=== PATIENT | female | born 1960 | race Caucasian/White ===

== ENCOUNTER 2022-06-19 14:32 | Emergency (ER) | payer OTHER, BC ==
--- OUTSIDE RECORDS SUMMARY | 2022-06-19 14:35 | XMS REPORT | Continuity of Care Document ---
:1960 Author Organization [facility] t Address [address] [place] [address] Care Team Providers Name Role Phone Shira NGUYEN, Wanda Dunbar Primary Care Physician [phone] Naty Shrestha MD Attending Clinician [phone] Eladia Ba MD Attending Clinician Doctor Unassigned, [place] Attending Clinician Unavailable Lab, Ang - Db Attending Clinician Unavailable Wanda Silva MD Attending Clinician WANDA SILVA Attending Clinician Unavailable Toni Navarro DO Attending Clinician Lukas Kinney Attending Clinician Unavailable Lab, Adc Fam Pob I Attending Clinician Unavailable Lukas Kinney Admitting Clinician Unavailable Payers Payer Name Policy Type Policy Number Effective Date Expiration Date S ource Problems Condition Condition Condition Status Onset Resolution Last Treating Co mments Source Name Details Category Date Date Treatment Clinician Date Anemia Anemia Disease Active Methodi 05-03 st 00:00: Hospita 00 l Tubular Tubular Disease Active Overview: Univ ers adenoma adenoma 8-20 Formattin ity o f 00:00: g of this 00 note Medical might be Branch different from the original. Followed by GI, repeat colonosco py 2022 GUI (iron GUI (iron Disease Active Uni vers deficiency deficiency 8-20 it y of anemia) anemia) 00:00: Medical Branch Elevated Elevated Disease Active Unive rs total total 2-26 ity of protein protein 00:00: Medical Branch Hyperchole Hyperchole Disease Active U nivers sterolemia sterolemia 2-08 it y of 00:00: Medical Branch Type 2 Type 2 Disease Active Univers diabetes diabetes 2-08 ity of mellitus mellitus 00:00: [place] without without 00 Medical complicati complicati Br anch on on Essential Essential Disease Active Uni vers hypertensi hypertensi 2-08 it y of on on 00:00: [place] [facility] Allergies, Adverse Reactions, Alerts Allergy Allergy Status Severity Reaction(s) Onset Inactive Treating Comm ents Source Name Type Date Date Clinician Clotrima Propensi Active Hives Method i zole ty to 04-09 st adverse 00:00: Hospita reaction 00 l s to drug Fluconaz Propensi Active Rash Univer s ole ty to 2-08 ity of adverse 00:00: [place] reaction 00 Medical s Branch Clotrima Propensi Active Rash Univer s zole ty to 2-08 ity of adverse 00:00: [place] reaction 00 Medical s Branch FLUCONAZ DRUG Active Med Rash Univers OLE INGREDI 2-08 ity of 00:00: [place] 00 Medical Branch CLOTRIMA DRUG Active Med Rash Univers ZOLE INGREDI 2-08 ity of 00:00: [place] 00 Medical Branch Family History Family Member Diagnosis Comments Start Date Stop Date Source Natural father Heart disease [facility] Maternal aunt Diabetes [facility] Maternal grandmother Stroke [facility] Natural mother Heart disease [facility] Natural mother Hy[facility] Social History Social Habit Start Date Stop Date Quantity Comments Source History [facility] University o f Alcohol Frequency [place] [facility] History [facility] University o f Alcohol Std [place] [facility] Drinks Branch History [facility] o f Alcohol Binge [place] [facility] al Branch Exposure to Not sure University of SARS-CoV-2 [place] [facility] (event) Branch Tobacco use and 2022-04-09 2022-04-09 Smokeless tobacco [facility] exposure 00:00:00 00:00:00 non-user Hospital Alcohol intake 2022-04-09 2022-04-09 Ex-drinker [facility] 00:00:00 00:00:00 (finding) Hospital Alcohol Comment 2015-09-15 2015-09-15 occ Universit y of 00:00:00 00:00:00 [facility] Sex Assigned At [birth year] [facility] 00:[facility]:00 Hospital Smoking Status Start Date Stop Date Source Never smoked tobacco [facility] Medications Ordered Filled Start Stop Current Ordering Indication Dosage Frequency Signature Comments Components Source Medication Medication Date Date Medication? Clinician (SIG) Name Name aspirin 81 Yes 81mg QD Take 81 mg M ethodi mg capsule 05-[address] 14:53: daily. Hospita 55 l clopidogreL Yes Method i (PLAVIX) 75 9- st mg tablet 14:53: Hospita 55 l ferrous Yes Methodi sulfate 325 05-03 st (65 FE) MG 14:53: Hospita tablet 55 l insulin Yes Methodi GLARGINE 05-03 st (LANTUS 14:53: Hospita SOLOSTAR) 55 l 100 unit/mL injection (pen) metFORMIN Yes Methodi (GLUCOPHAGE 05-03 st ) 500 mg 14:53: Hospita tablet 55 l triamcinolo Yes Apply Metho di ne 04-[address] (KENALOG) 08:42: Hospita 0.1 % cream 18 l amLODIPine Yes 2.5mg QD Take 1 Meth jerardo (NORVASC) 8-[address] 2.5 mg 00:00: (2.5 mg Hospita tablet 00 total) by l mouth daily. pioglitazon Yes 30mg QD Take 1 Meth jerardo e (ACTOS) 8-25 tablet (30 st 30 MG 00:00: mg total) Hospita tablet 00 by mouth l daily. losartan Yes 100mg QD Take 1 Method i (COZAAR) 8-[address] 100 MG 00:00: (100 mg Hospita tablet 00 total) by l mouth daily. hydrOXYzine Yes 25mg QD Take 1 Meth jerardo (ATARAX) 25 8-25 tablet (25 st MG tablet 00:00: mg total) Hos hallie 00 by mouth l daily. Trulicity Yes INJECT 1.5 Me thodi 1.5 mg/0.5 8-[address] mL 00:00: THE SKIN Hospita subcutaneou 00 WEEKLY. l s pen atorvastati Yes 40mg QD Take 1 Meth jerardo n (LIPITOR) 7-07 tablet (40 st 40 mg 00:00: mg total) Hospita tablet 00 by mouth l daily. fluticasone 2021- No Metho di propionate 6- 09-26 st (FLONASE) 00:00: 00:00 Hospita 50 00 :00 l mcg/actuati on nasal spray hydrOXYzine 2020-08- No 25mg Take 25 mg Univers 25 mg 1-24 11-24 by mouth ity of tablet 10:28: 00:00 every 8 [place] 37 :00 (eight) Medical hours as Branch needed for Itching. hydrOXYzine 2020-08 No 25mg Take 25 mg Univers 25 mg 1-24 11-24 by mouth ity of tablet 10:28: 00:00 every 8 [place] 37 :00 (eight) Medical hours as Branch needed for Itching. pioglitazon 2020-08 Yes [id number] 30mg Take 1 Univers e 30 mg 1-24 tablet by ity of tablet 00:00: mouth [place] 00 daily. Medical Branch metformin 2020-08 Yes [id number] 1000mg Take 2 Univers ER 500 mg 1-24 tablets by ity of 24 hr 00:00: mouth 2 [place] tablet 00 (two) Medical times Branch daily. losartan 2020-08 Yes [id number] 100mg Take 1 Un rafiq 100 mg 1-24 tablet by ity of tablet 00:00: mouth [place] 00 every Medical morning. Branch hydrOXYzine 2020-08 Yes [id number] 25mg Take 1 Univers 25 mg 1-24 tablet by ity of tablet 00:00: mouth [place] 00 every 8 Medical (eight) Branch hours as needed for Itching. ferrous 2020-08 Yes [id number] 325mg Take 1 Uni vers sulfate 325 1-24 tablet by ity of mg (65 mg 00:00: mouth [place] iron) EC 00 daily with Medic al tablet breakfast. Branch dulaglutide 2020-08 Yes [id number] 1.5mg inject 1.5 Univers (TRULICITY) 1-24 mg under ity of 1.5 mg/0.5 00:00: the skin Pasquale as mL PnIj 00 weekly. Medical Branch atorvastati 2020-08 Yes [id number] 10mg Take 1 Univers n 10 mg 1-24 tablet by ity of tablet 00:00: mouth [place] 00 every Medical morning. Branch amLODIPine 2020-08 Yes [id number] 2.5mg Take 1 Univers 2.5 mg 1-24 tablet by ity of tablet 00:00: mouth [place] 00 daily. Medical Branch pioglitazon 2020-08 Yes [id number] 30mg Take 1 Univers e 30 mg 1-24 tablet by ity of tablet 00:00: mouth [place] 00 daily. Medical Branch metformin 2020-08 Yes [id number] 1000mg Take 2 Univers ER 500 mg 1-24 tablets by ity of 24 hr 00:00: mouth 2 [place] tablet 00 (two) Medical times Branch daily. losartan 2020-08 Yes [id number] 100mg Take 1 Un rafiq 100 mg 1-24 tablet by ity of tablet 00:00: mouth [place] 00 every Medical morning. Branch hydrOXYzine 2020-08 Yes [id number] 25mg Take 1 Univers 25 mg 1-24 tablet by ity of tablet 00:00: mouth [place] 00 every 8 Medical (eight) Branch hours as needed for Itching. ferrous 2020-08 Yes [id number] 325mg Take 1 Uni vers sulfate 325 1-24 tablet by ity of mg (65 mg 00:00: mouth [place] iron) EC 00 daily with Medic al tablet breakfast. Branch dulaglutide 2020-08 Yes [id number] 1.5mg inject 1.5 Univers (TRULICITY) 1-24 mg under ity of 1.5 mg/0.5 00:00: the skin [place] as mL PnIj 00 weekly. Medical Branch atorvastati 2020-08 Yes [id number] 10mg Take 1 Univers n 10 mg 1-24 tablet by ity of tablet 00:00: mouth [place] 00 every Medical morning. Branch amLODIPine 2020-08 Yes [id number] 2.5mg Take 1 Univers 2.5 mg 1-24 tablet by ity of tablet 00:00: mouth [place] 00 daily. Medical Branch pioglitazon 2020-08 Yes [id number] 30mg Take 1 Univers e 30 mg 1-24 tablet by ity of tablet 00:00: mouth [place] 00 daily. Medical Branch metformin 2020-08 Yes [id number] 1000mg Take 2 Univers ER 500 mg 1-24 tablets by ity of 24 hr 00:00: mouth 2 [place] tablet 00 (two) Medical times Branch daily. losartan 2020-08 Yes [id number] 100mg Take 1 Un rafiq 100 mg 1-24 tablet by ity of tablet 00:00: mouth [place] 00 every Medical morning. Branch hydrOXYzine 2020-08 Yes [id number] 25mg Take 1 Univers 25 mg 1-24 tablet by ity of tablet 00:00: mouth [place] 00 every 8 Medical (eight) Branch hours as needed for Itching. ferrous 2020-08 Yes [id number] 325mg Take 1 Uni vers sulfate 325 1-24 tablet by ity of mg (65 mg 00:00: mouth [place] iron) EC 00 daily with Medic al tablet breakfast. Branch dulaglutide 2020-08 Yes [id number] 1.5mg inject 1.5 Univers (TRULICITY) 1-24 mg under ity of 1.5 mg/0.5 00:00: the skin [place] as mL PnIj 00 weekly. Medical Branch atorvastati 2020-08 Yes [id number] 10mg Take 1 Univers n 10 mg 1-24 tablet by ity of tablet 00:00: mouth [place] 00 every Medical morning. Branch amLODIPine 2020-08 Yes [id number] 2.5mg Take 1 Univers 2.5 mg 1-24 tablet by ity of tablet 00:00: mouth [place] 00 daily. Medical Branch ketoconazol 2019-08 Yes [id number] Apply to Univers e 2 % cream -23 area(s) ity o f 08:15: daily. [place] 13 Medical Branch ketoconazol 2019-08 Yes [id number] Apply to Univers e 2 % cream -23 area(s) ity o f 08:15: daily. [address] ketoconazol 2019-08 Yes [id number] Apply to Univers e 2 % cream 08-30 area(s) ity o f 08:15: daily. [address] metformin 2019-08- No [id number] 1000mg Take 2 Univers ER 500 mg 08-30-24 tablets by ity of 24 hr 00:00: 00:00 mouth 2 [place] tablet 00 :00 (two) Medical times [place] daily. pioglitazon 2019-08- No [id number] 30mg Take 1 Univers e 30 mg 08-3024 tablet by ity of tablet 00:00: 00:00 mouth [place] 00 :00 daily. Medical Branch dulaglutide 2019-08- No [id number] 1.5mg inject 1.5 Univers (TRULICITY) 08-3024 mg under ity of 1.5 mg/0.5 00:00: 00:00 [place] mL PnIj 00 :00 weekly. Medical Branch amLODIPine 2019-08- No [id number] 2.5mg Take 1 Univers 2.5 mg 08-30 tablet by ity of tablet 00:00: 00:00 mouth [place] 00 :00 daily. Medical Branch atorvastati 2019-08- No [id number] 10mg Take 1 Univers n 10 mg 08-30 tablet by ity of tablet 00:00: 00:00 mouth [place] 00 :00 every Medical morning. Branch losartan 2019-08- No [id number] 100mg Take 1 U nivers 100 mg 08-30 tablet by ity of tablet 00:00: 00:00 mouth [place] 00 :00 every Medical morning. Branch metformin 2019-08- No [id number] 1000mg Take 2 Univers ER 500 mg 08-30-24 tablets by ity of 24 hr 00:00: 00:00 mouth 2 [place] tablet 00 :00 (two) Medical times [place] daily. pioglitazon 2019-08- No [id number] 30mg Take 1 Univers e 30 mg 08-3024 tablet by ity of tablet 00:00: 00:00 mouth [place] 00 :00 daily. Medical Branch dulaglutide 2019-08- No [id number] 1.5mg inject 1.5 Univers (TRULICITY) 08-30 mg under ity of 1.5 mg/0.5 00:00: 00:00 [place] mL PnIj 00 :00 weekly. Medical Branch amLODIPine 2019-08- No [id number] 2.5mg Take 1 Univers 2.5 mg 08-30 tablet by ity of tablet 00:00: 00:00 mouth [place] 00 :00 daily. Medical Branch atorvastati 2019-08- No [id number] 10mg Take 1 Univers n 10 mg 08-30 tablet by ity of tablet 00:00: 00:00 mouth [place] 00 :00 every Medical morning. Branch losartan 2019-08- No [id number] 100mg Take 1 U nivers 100 mg 08-30 tablet by ity of tablet 00:00: 00:00 mouth [place] 00 :00 every Medical morning. Branch [facility] 2018-08 Yes [id number] Apply to [place] [address] area(s). ity of t comb45 08:01: [place] 0.1 % Crea 43 [facility] 2018-08 Yes [id number] Apply to [place] [address] area(s). ity of t comb45 08:01: [place] 0.1 % Crea 43 [facility] 2018-08 Yes [id number] Apply to [place] [address] area(s). ity of t comb45 08:01: [place] 0.1 % Crea 43 Medical Branch ferrous 2018-08- No [id number] 325mg Take 1 Un rafiq sulfate 325 09-03 tablet by it y of mg (65 mg 00:00: 00:00 mouth [place] iron) EC 00 :00 daily with Medic al tablet breakfast. Branch ferrous 2018-08- No [id number] 325mg Take 1 Un rafiq sulfate 325 09-03 tablet by it y of mg (65 mg 00:00: 00:00 mouth [place] iron) EC 00 :00 daily with Medic al tablet breakfast. Branch Immunizations Ordered Filled Immunization Date Status Comments [facility] e Immunization Name Name Pneumococcal 2021-07-01 Completed Holder o f Polysaccharide, 00:00:00 [place] Med ical PPSV23 (PNEUMOVAX) Branch Pneumococcal 2021-07-01 Completed University o f Polysaccharide, 00:00:00 [facility] [place] [facility] ica PPSV23 (PNEUMOVAX) Branch Pneumococcal 2021-07-01 Completed University o f Polysaccharide, 00:00:00 [place] [facility] PPSV23 (PNEUMOVAX) Branch SARS-COV-2 COVID-19 2020-10-06 Completed Unive rsity of MODERNA VACCINE 00:00:00 [place] [facility] Branch SARS-COV-2 COVID-19 2020-10-06 Completed Unive rsity of MODERNA VACCINE 00:00:00 [place] [facility] Branch SARS-COV-2 COVID-19 2020-10-06 Completed Unive rsity of MODERNA VACCINE 00:00:00 [place] [facility] Branch SARS-COV-2 COVID-19 2020-09-08 Completed Unive rsity of MODERNA VACCINE 00:00:00 [facility] SARS-COV-2 COVID-19 2020-09-08 Completed Unive rsity of MODERNA VACCINE 00:00:00 [place] [facility] Branch SARS-COV-2 COVID-19 2020-09-08 Completed Unive rsity of MODERNA VACCINE 00:00:00 [facility] Influenza Virus 2020-05-22 Completed Universit y of Vaccine Quad .5 mL 00:00:00 [facility] 6+ MO [place] Influenza Virus 2020-05-22 Completed Universit y of Vaccine Quad .5 mL 00:00:00 [facility] 6+ MO [place] Influenza Virus 2020-05-22 Completed Universit y of Vaccine Quad .5 mL 00:00:00 [facility] 6+ MO [place] Zoster Vaccine 2020-05-08 Completed University of Recombinant 00:00:00 [facility] Zoster Vaccine 2020-05-08 Completed University of Recombinant 00:00:00 [facility] Zoster Vaccine 2020-05-08 Completed University of Recombinant 00:00:00 [facility] Influenza Virus 2019-07-04 Completed Universit y of Vaccine Quad .5 mL 00:00:00 [facility] 6+ MO [place] Influenza Virus 2019-07-04 Completed Universit y of Vaccine Quad .5 mL 00:00:00 [facility] 6+ MO [place] Influenza Virus 2019-07-04 Completed Universit y of Vaccine Quad .5 mL 00:00:00 [facility] 6+ MO [place] Vital Signs Vital Name Observation Time Observation Value Comments Source Systolic blood 2021-07-01 16:09:00 139 mm[Hg] Univer sity of pressure [facility] Diastolic blood 2021-07-01 16:09:00 79 mm[Hg] Unive rsity of pressure [facility] Heart rate 2021-07-01 16:09:00 78 /min [facility] Body height 2021-07-01 16:09:00 162.6 cm [facility] Body weight 2021-07-01 16:09:00 80.287 kg [facility] BMI 2021-07-01 16:09:00 30.38 kg/m2 [facility] Systolic blood 2022-05-03 19:52:00 146 mm[Hg] [facility] pressure Diastolic blood 2022-05-03 19:52:00 62 mm[Hg[facility] pressure Heart rate 2022-05-03 19:52:00 96 /min [facility] Body temperature 2022-05-03 19:52:00 36.28 Irene [facility] Body height 2022-05-03 19:52:00 162.6 cm [facility] Body weight 2022-05-03 19:52:00 78.472 kg [facility] BMI 2022-05-03 19:52:00 29.70 kg/m2 [facility] Oxygen saturation in 2022-05-03 19:52:00 99 /min [facility] Arterial blood by Pulse oximetry Respiratory rate 2022-04-09 13:36:00 18 /min [facility] Procedures Procedure Date / Time Performing Clinician Source Performed URINE PROTEIN 2022-05-17 12:35:00 Naty Shrestha ospital ELECTROPHORESIS, 24 HOUR Wanda IMMUNOFIXATION, URINE 2022-05-17 12:35:00 [facility] Wanda IMMUNOFIXATION, SERUM 2022-05-03 20:59:00 Naty Shrestha [facility] Wanda RETICULOCYTE COUNT 2022-05-03 20:59:00 Naty Shrestha [facility] Wanda KAPPA LAMBDA FREE LIGHT 2022-05-03 20:59:00 Naty Shrestha [facility] CHAIN WITH RATIO Wanda SERUM ELECTROPHORESIS 2022-05-03 20:59:00 [facility] Wanda COMPREHENSIVE METABOLIC 2022-05-03 20:59:00 Naty Shrestha [facility] PANEL Wanda LDH 2022-05-03 20:59:00 Naty Shrestha [facility] mikel Gutierrez ZINC LEVEL, SERUM 2022-05-03 20:59:00 Henrietta [facility] Wanda COPPER LEVEL, SERUM 2022-05-03 20:59:00 Naty Shrestha [facility] Wanda FOLATE LEVEL 2022-05-03 20:59:00 Henrietta [facility] mikel Gutierrez VITAMIN B12 LEVEL 2022-05-03 20:59:00 Henrietta [facility] Wanda FERRITIN LEVEL 2022-05-03 20:59:00 Naty Shrestha [facility] mikel Gutierrez HC COMPLETE BLD COUNT 2022-05-03 20:59:00 [facility] W/AUTO DIFF Wanda ESTIMATED GFR 2022-05-03 20:59:00 Naty Shrestha ESTIMATED GFR 2022-05-03 20:53:00 Naty Shrestha mikel Gutierrez AUTHORIZATION TO RELEASE 2021-12-22 05:01:00 Doctor Unassigned, [facility] PHI TO [facility] [place] [facility] MRI HEAD EXTERNAL STUDY 2021-12-16 13:00:00 [facility] CT HEAD EXTERNAL STUDY 2021-12-15 13:07:47 [facility] PNEUMOCOCCAL VACCINE, 2021-07-01 16:24:54 Wanda Silva [facility] 23-VALENT (PNEUMOVAX) [facility] Plan of Care Planned Activity Planned Date Details Comments Source Future Scheduled 2022-06-11 HEPATITIS B VACCINES [facility] Test 10:21:50 (1 of 3 - 3-dose series) [code = HEPATITIS B VACCINES (1 of 3 - 3-dose series)] Future Scheduled 2022-06-11 Hepatitis C screening [facility] Test 10:21:50 (procedure) [code = 588249535] Future Scheduled 2022-06-11 Screening for [facility] Test 10:21:50 malignant neoplasm of cervix (procedure) [code = 522752366] Future Scheduled 2022-06-11 BREAST CANCER [facility] Test 10:21:50 SCREENING [code = BREAST CANCER SCREENING] Future Scheduled 2022-06-11 COLONOSCOPY SCREENING [facility] Test 10:21:50 [code = COLONOSCOPY SCREENING] Future Scheduled 2022-06-11 SHINGLES VACCINES (3 Met [facility] Test 10:21:50 of 3) [code = SHINGLES VACCINES (3 of 3)] Future Scheduled 2022-06-11 COVID-19 VACCINE (4 - [facility] Test 10:21:50 Booster for Moderna series) [code = COVID-19 VACCINE (4 - Booster for Moderna series)] Future Scheduled 2022-06-11 INFLUENZA VACCINE [facility] Test 10:21:50 [code = INFLUENZA VACCINE] Encounters Start End Encounter Admission Attending Care Care Encounter Source Date/Time Date/Time Type Type Clinicians Facility Department ID 2022-05-17 2022-05-17 Lab Henri[place], 1.2.840.1 [id number] Methodi 09:10:00 09:15:00 Naty 86291.1.1 733 [facility] 3.430.2.7 Hospit a .3.558692 l .8 2022-05-17 2022-05-17 Travel 1.2.840.1 1.2.827.857 [id number] Methodi 00:00:00 00:00:00 84494.1.1 350.1.13.43 729 3.430.2.7 0.2.7.3.698 Ho spita .3.803414 084.8 l .8 2022-05-17 2022-05-17 Outpatient HENRIETTA, [facility] [id number] [place] 00:00:00 00:00:00 NATY [address] 2022-05-03 2022-05-03 Lab [place], 1.2.840.1 [id number] Methodi 16:00:00 16:05:[address] Wanda 3.430.2.7 Hospit a .3.591135 l .8 2022-05-03 2022-05-[address] [facility], 1.2.840.1 [id number] Methodi 15:00:00 15:37:06 Visit Naty 60106.1.[address] Wanda 3.430.2.7 Hospit a .3.478759 l .8 2022-05-03 2022-05-03 Travel 1.2.840.1 1.2.327.988 [id number] Methodi 00:00:00 00:00:[address] 3.430.2.7 0.2.7.3.698 Ho spita .3.440182 084.8 l .8 2022-05-03 2022-05-03 Outpatient [facility] [id number] [place] 00:00:00 00:00:00 NATY [address] 2022-05-03 2022-05-03 Outpatient [facility] [id number] [place] 00:00:00 00:00:00 NATY [address] 2022-04-14 2022-04-14 Travel 1.2.840.1 1.2.580.986 [id number] Methodi 00:00:00 00:00:[address] 3.430.2.7 0.2.7.3.698 Ho spita .3.500785 084.8 l .8 2022-04-09 2022-04-09 [facility], 1.2.840.1 [id number] Methodi 10:47:09 23:59:00 Encounter [place] 10625.1.[address] [place] 3.430.2.7 Hospit a .3.929202 l .8 2022-04-09 2022-04-09 [facility], 1.2.840.1 [id number] Methodi 10:47:05 23:59:00 Encounter [place] 37585.1.[address] [place] 3.430.2.7 Hospit a .3.926937 l .8 2022-04-09 2022-04-09 Office [place], 1.2.840.1 [id number] Methodi 08:30:00 09:39:45 Visit [place] 54403.1.[address] [place] 3.430.2.7 Hospit a .3.231895 l .8 2022-04-09 2022-04-09 Orders [place], 1.2.840.1 [id number] Methodi 00:00:00 00:00:00 Only [place] 76366.1.[address] [place] 3.430.2.7 Hospit a .3.644442 l .8 2022-04-09 2022-04-09 Travel 1.2.840.1 1.2.348.891 [id number] Methodi 00:00:00 00:00:[address] 3.430.2.7 0.2.7.3.698 spita .3.900427 084.8 l .8 2022-04-09 2022-04-09 Outpatient BACOVA, [facility] [id number] [place] 00:00:00 00:00:00 [place] 284 Method i 2022-04-09 2022-04-09 Outpatient BACOVA, [facility] [id number] [place] 00:00:00 00:00:00 OMOT[place]A 122 Method i 2022-04-09 2022-04-09 Outpatient BACOVA, [facility] [id number] [place] 00:00:00 00:00:00 OMOTOLA 140 Method i 2022-01-27 2022-01-27 Transcribe [place], 1.2.840.1 [id number] Methodi 00:00:00 00:00:00 Orders [place] [address]0725.1.[address] [place] 3.430.2.7 Hospit a .3.371965 l .8 2021-12-22 2021-12-22 Dariel GAYTAN 1.2.840.114 [id number] 00:00:00 00:00:00 Only Unassigned, KEVEN 350.1.13.10 ity of [place] [facility] 4.2.7.2.686 Pasquale as [phone] [address] 2021-07-01 2021-07-01 Powder Core Tester Lab, Ang - Db [facility] 1.2.840.1 14 [id number] Univers 10:44:56 10:59:56 Visit Shira Wanda Manjinder [facility] 350.1.13 .10 ity of [place] 4.2.7.2.686 Pasquale as VIVEK?BLEA [phone] [facility] [address] [place] MEDICAL OFFICE BUILDING 2021-07-01 2021-07-01 Outpatient R [facility] [id number] Univers 10:15:00 10:43:33 [facility] 2021-07-01 2021-07-01 Outpatient R [facility] [id number] Univers 10:15:00 10:43:[address] [facility] 2021-07-01 2021-07-01 Office [facility] 1.2.840.114 [id number] Univers 10:04:14 10:43:33 Visit [facility] 350.1.13.10 it y of Manjinder [place] 4.2.7.2.686 Pasquale as VIVEK?BLEA [phone] [facility] [address] [place] MEDICAL OFFICE [facility] 2020-10-15 2020-10-15 Patient Ramon [facility] 1.2.840.114 [id number] Univers 00:00:00 00:00:00 Outreach Toni CH 350.1.13.10 i ty of [facility] 4.2.7.2.686 [place] [phone] Hi dicny [address] [place] 2020-09-01 2020-09-01 Orders Doctor GAYTAN 1.2.840.114 [id number] Univers 00:00:00 00:00:00 Only Unassigned, KEVEN 350.1.13.10 ity of [place] [facility] 4.2.7.2.686 Pasquale as [phone] [address] 2020-06-30 2020-06-30 Outpatient Lukas Cee [facility] MILY LA0 [id number] [facility] 12:00:00 12:00:00 32 [facility] 2020-06-30 2020-06-30 Powder Core Tester Lab, Adc Fam Pob I [facility] 1.2. [id number] [id number] Univers 08:37:52 08:55:25 Visit Wanda Silva nguyen [facility] [id number] .10 ity of [place] [id number] Pasquale as Professio [phone] [address] Office Building [facility] 2020-06-30 2020-06-30 Office [facility] [id number] [facility] 08:02:39 08:17:39 Visit [facility] [id number] it y of [place] [id number] Pasquale as Professio [phone] [address] Office Building [facility] 2020-06-30 2020-06-30 Outpatient [facility] [id number] Univers 08:00:00 08:00:00 WANDA ity of [facility] 2020-06-04 2020-06-04 Orders Doctor LUKAS [id number] Univers 00:00:00 00:00:00 Only Unassigned, KEVEN [id number] ity of [place] [facility] [id number] Pasquale as [phone] [address] 2020-05-30 2020-05-30 Telephone [facility] [id number] Univers 00:00:00 00:00:00 [facility] [id number] it y of [place] [id number] Pasquale as Professio [phone] [address] Office Building [facility] 2019-10-23 2019-10-23 Telephone [facility] [id number] Univers 00:00:00 00:00:00 [facility] [id number] it y of [place] [id number] Pasquale as Professio [phone] [address] Office Building [facility] 2019-10-16 2019-10-16 Telephone [facility] 1.2.840.114 [id number] Univers 00:00:00 00:00:00 [facility] [id number] it y of Manjinder Palacio [id number] Pasquale as Professio [phone] Hi dicny nal 044 [facility] 2019-10-09 2019-10-09 Orders Doctor LUKAS [id number] Univers 00:00:00 00:00:00 Only Unassigned, KEVEN [id number] ity of [place] [facility] [id number] Pasquale as [phone] [address] 2019-10-08 2019-10-08 Telephone [facility] 1.2.840.114 [id number] Univers 00:00:00 00:00:00 [facility] [id number] it y of Manjinder Palacio [id number] Pasquale as Professio [phone] [facility] nal 044 [facility] Results Test Description Test Time Test Comments Results Result Comments Source Immunofixation, urine 2022-05-20 11:53:00 Test Item Value Reference Range Interpretation Comme [facility] Immunofixation, urine (test code = SEE COMMENT See electrophoresis report below. 1599) [facility] protein electrophoresis, 24 bram4493-05-04 20:28:00 Test Item Value Reference Range Interpretation Comments Collection start 05/16/22 date, urine (test code = 19416-6) Collection start time, urine (test code = 30820-1) Collection stop date, 05/17/22 urine (test code = 90834-7) Collection stop time, urine (test code = 34043-0) Hours of collection (test code = 85950-8) Total volume, urine 2010 mL (test code = 59124-7) Urine protein 5 mg/dL concentration (test code = 82793-6) Urine protein 24 hr See_Comment [Automa brittany message] excretion (test code [facility] tem which = 2889-4) generated this result transmitted ref erence range: 0 - 150 mg/24hrs. The reference range was not used to int erpret this result as normal/abnormal . UPE albumin (test 54.4 % code = 62175-3) UPE globulin (test 45.6 % code = 51183-6) UPE extended See Comment An abnormal 24 hour interpretation (test urine p rotein study code = 52740-1) without clin ical proteinuria. Ho wever, a faint monoclo nal IgM [facility] [place] band is seen on immunofixation only.This band is excreted in min ione amount. UPE interpretation See Comment Maribell Schaeffer, (test code = 19914-0) PhD; Marko Roldan MD [facility]
[2022-06-19] MEDS ORDERED: LIDOCAINE 4% PATCH ONE (15:19)
[2022-06-19] MEDS ORDERED: methocarbamoL 750 MG TAB ONE (15:27)
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
[2022-06-19 16:35] VITALS: TEMP 98.4; O2SAT 100
[2022-06-19 16:37] VITALS: BP 133/69
== END 2022-06-19 16:31 | disposition home or self-care (01) ==
LOC: ER 14:32
DX: M54.2 Cervicalgia (principal); R51.9 Headache, unspecified; V49.49XA Driver injured in collision with other motor vehicles in traffic accident, initial encounter; I10 Essential (primary) hypertension; E11.9 Type 2 diabetes mellitus without complications; Z88.8 Allergy status to other drugs, medicaments and biological substances; Z79.82 Long term (current) use of aspirin; Z79.4 Long term (current) use of insulin
CPT/HCPCS: 70450; 72125; 99284; J2001